=== PATIENT | female | born 1995 | race Caucasian/White ===

== ENCOUNTER 2020-08-09 05:25 | Inpatient (IN) | payer MEDICAID, SELFPAY ==
[2020-08-09] VITALS (27 sets, daily range): BP systolic 92–111; BP diastolic 45–73; PULSE 40–99; RESP 16–20; TEMP 36.5–37.1; O2SAT 96–100; BMI 27.4
[2020-08-09 06:04] LABS: Basophils # 0.1 10^3/uL (0.0-0.1); Basophils % 0.5 %; Eosinophils # 0.2 10^3/uL (0.0-0.8); Eosinophils % 1.4 %; Lymphocytes # 2.5 10^3/uL (0.8-4.8); Lymphocytes % 19.3 %; Mean Corpuscular HGB Conc 31.3 g/dL (30.0-36.0); Mean Corpuscular Hemoglobin 26.8 pg (28.0-34.0); Mean Corpuscular Volume 85.8 fL (81-99); Mean Platelet Volume 8.9 fL (7.4-10.4); Monocytes % 7.7 %; Neutrophils # 9.16 10^3/uL (1.8-7.7); Nucleated Red Blood Cells % 0 %; Platelet Count 388 10^3/cmm (130-400); Red Blood Count 3.73 10^6/uL (4.1-5.3); Red Cell Distribution Width 13.7 % (12.1-15.1); White Blood Count 13.1 10^3/uL (4.0-10.0)
[2020-08-09] MEDS: lactated ringers 1,000 ML 999 ML IV (06:14)
[2020-08-09] MEDS: famotidine 20 mg/2 mL INJ IVP (06:45)
[2020-08-09] MEDS: metoclopramide 5 mg/mL SDV 2 mL 10 MG IVP (06:46)
[2020-08-09] MEDS: citric acid-sodium citrate 30 mL UDC PO (06:46)
--- NOTE | 2020-08-09 06:54 | ANES.PREANE2 ---
Pre-Anesthetic Assessment Pre-Anesthetic Assessment: Height/Weight: Height 1.6 m Weight 70.307 kg Temp Pulse Resp BP 98.8 F 99 16 110/67 08/09/20 05:56 08/09/20 05:57 08/09/20 05:51 08/09/20 05:57 Preop Diagnosis: previous c section Proposed Procedure: Operation Date: 08/09/20 07:00 Proposed Procedures p Section Repeat With Tubal(Not Applicable) - Lexus Acosta MD Familial anesthetic complications: none Was Beta Charmaine taken within 24 hours: N/A Last intake: Intake Last Liquid Date 08/08/20 Last Liquid Time 21:00 Last Solid Date 08/08/20 Last Solid Time 21:00 Social: Social History: No alcohol and No tobacco Exam: Pre-Anes Outpt Exam: alert, oriented x 3, clear to auscultation bilaterally and regular rate & rhythm Airway: Submandibular: WNL Cervical ROM: WNL MP: 2 Dentition: Full Additional comments: chipped tooth on back left side Pulmonary: Pulmonary: None reported CV/HEM: CV/HEM: None reported : : None reported Hepatic: Hepatic: None reported GI: GI: None reported Metabolic: Metabolic: None reported Musc/skel: Musc/skel: None reported Neuropsych: Neuropsych: Seizure ( about a year since last seizure) Anesthetic Plan: ASA status: 2 Anesthesia: Regional (specify below) Risk of > 500 ml blood loss (7ml/kg in children): Yes, adequate IV access and fluids planned Meds/Allergies Current Medications: Current Medications Generic Name Dose Route Start Last Admin Trade Name Freq PRN Reason Stop Dose Admin Lactated Ringer's 1,000 mls @ 999 m ls/hr 08/09/20 05:55 08/09/20 06:14 Lactated Ringers IV 08/09/20 06:55 999 mls/hr .Q1H1M ONE Administration PFSH Anesthesia Female Reproductive History: : 2 Data Anesthesia CBC & Chem 7: 08/09/20 05:50 Other Labs: Laboratory Results - last 48 hr 08/09/20 05:50 WBC 13.1 H RBC 3.73 L Hgb 10.0 L Hct 32.0 L MCV 85.8 MCH 26.8 L MCHC 31.3 RDW 13.7 Plt Count 388 MPV 8.9 Neut % (Auto) 70.0 Lymph % (Auto) 19.3 [place] % (Auto) 7.7 Eos % (Auto) 1.4 Baso % (Auto) 0.5 Neut # (Auto) 9.16 H Lymph # (Auto) 2.5 [place] # (Auto) 1.0 H Eos # (Auto) 0.2 Baso # (Auto) 0.1 Nucleated RBC % (auto) 0 Nucleated RBCs # 0.0 Cardiac Studies: No Data to Display
--- NOTE | 2020-08-09 07:17 | P.HP_ITS ---
Providers/Chief Complaint Admitting Physician: Lexus Acosta MD Chief Complaint: repeat c section with tubal History of Present Illness HUMBERTO HENDERSON is a 25 year old female G2, P1 at 39 weeks gestation here for repeat section with bilateral tubal ligation. The patient presented very late for care around 33 weeks gestation. Review of Systems Const: Denies: fever(s) or chills Eyes: Denies: change in vision ENMT: Denies: throat pain Card: Denies: chest pain or irregular heart rhythm Resp: Denies: dyspnea, productive cough or non-productive cough GI: Denies: abdominal pain or vomiting : Denies: flank pain or difficulty voiding Musc: Denies: extremity swelling Skin/Breast: Denies: rash Neuro: Denies: headache(s) or numbness in extremities Psych: Denies: change in appetite [place]/Lymph: Denies: easy bruising or easy bleeding Medications/Allergies Allergies Allergy/AdvReac Type Severity Reaction Status Date / Time No Known Allergies Allergy Verified 08/09/20 06:10 [facility] Acute Female Reproductive History: : 2 Vitals/I&O/Wt Last Vital Signs Temp 98.8 F 08/09/20 05:56 Pulse 99 08/09/20 05:57 Resp 16 08/09/20 05:51 BP 110/67 08/09/20 05:57 Weight last 48 hrs Weight 155 lb Physical Exam Const: COMMON NORMALS: no acute distress GENERAL APPEARANCE: cooperative and comfortable HENMT: COMMON NORMALS: normocephalic and atraumatic FACE & SINUS: normal facial exam Eye: COMMON NORMALS: Equal, round and reactive pupils present and EOMs intact bilaterally Chest: COMMONS NORMALS: normal inspection of the chest Resp: COMMON NORMALS: normal respiratory effort, No retractions, No use of accessory muscles and clear to auscultation bilaterally Cardio: COMMON NORMALS: regular rate and regular rhythm GI: COMMON NORMALS: non-tender (Gravid) Extremity: GENERAL: Yes normal exam except as noted and No calf tenderness Psych: COMMON NORMALS: mental status grossly normal, cooperative and normal affect Data : 08/09/20 05:50 A&P Assessment and plan (1) with 39 completed weeks gestation: Status: Acute (2) History of section complicating : Plan for repeat section with bilateral tubal ligation Status: Acute (3) Sterilization consult: Patient desires permanent surgical sterilization Status: Acute Attestations Medical Necessity Statement*: Routine surgery and care Coding Level of Care Code Acute Strategic Debriefing Officer for Chg Fwd Diagnoses with 39 completed weeks gestation Z3A.39 History of section complicating O34.219 Sterilization consult Z30.09
[2020-08-09] MEDS: lactated ringers 1,000 ML 125 ML IV (07:22)
--- NOTE | 2020-08-09 08:53 | P.PCN_ITS ---
PACU note PACU note: VSS, Good respiratory effort, report to TUFT MACHINE OPERATOR Post-Anesthesia Exam: awake
--- NOTE | 2020-08-09 08:53 | PM.PACU ---
PACU note PACU note: VSS, Good respiratory effort, report to TESTING AND REGULATING CHIEF Post-Anesthesia Exam: awake
--- NOTE | 2020-08-09 08:56 | PM.OP ---
Operative Report Date of procedure: August 09, 2020 Pre-op Diagnosis: previous c section Pre-op Diagnosis: Undesired fertility Post-op diagnosis: same Procedure Done: 1. Repeat low transverse section Via Pfannenstiel skin incision 2. Bilateral tubal ligation Specimens removed/disposition: Vertex female infant weight 6 pounds 15 ounces, 3140 g, Apgars 7 and 9 Surgeon: Lexus Acosta MD Anesthesia: Other (Spinal) Estimated blood loss (mL): 400 IV fluids (mL): 1,100 Urine output (mL): 150 Complications: None Condition: stable Disposition: floor Procedure: After informed consent the patient was taken to the OR where spinal anesthesia was administered. She was prepped and draped in normal sterile fashion in dorsal supine position with a left lateral tilt. After adequate spinal anesthesia was verified her keloid scar from her prior section was excised. The incision was then carried through to the underlying underlying fascia sharply. The fascial incision was then extended laterally using the Mayos. The peritoneum was entered sharply and the incision site was manually stretched. The bladder blade was inserted and the vesicouterine peritoneum was identified and entered sharply using the Metzenbaums. The bladder flap was then created digitally. The bladder blade was reinserted The uterine incision was made in a transverse fashion in the lower uterine segment. Amniotic rupture of membranes was performed with an Allis clamp. The 's head and body were then delivered atraumatically with bulb suction of the mouth and nares at delivery. There was a nuchal x2. The cord was clamped and cut and the infant was handed to the waiting pediatric nurse. Cord blood was obtained. The placenta was delivered using fundal pressure. The uterus was then exteriorized from the abdomen and a dry sponge was used to clear the uterus of clots and debris. The uterine incision was repaired using 0 chromic in a running locked fashion. A second layer of the same suture was used in an imbricating manner. Excellent hemostasis was obtained. The left fallopian tube was then grasped with a [place] and a midportion of the tube was ligated and excised. Specimen was sent to pathology. Tubal ostia were identified. Cut portions of the tube were coagulated using the Bovie. There was excellent hemostasis. The right fallopian tube was then grasped with a [place] and a midportion of the tube was ligated and excised. Estimate was sent to pathology. Tubal ostia were identified. Cut portions of the tube were ligated using the Bovie. Excellent hemostasis was obtained. The uterus was then returned to the abdomen. Irrigation was used to clear the gutters of clots and debris and the uterine incision was reinspected for hemostasis. The peritoneum was then reapproximated using 4-0 Vicryl in a running fashion. The subfascial tissue was inspected for hemostasis and any small bleeders were coagulated using the Bovie. The fascia was then reapproximated using 0 Vicryl in a running fashion. The subcutaneous tissue was then irrigated and any small bleeders were coagulated using the Bovie. The subcutaneous tissue was then reapproximated using 4-0 Vicryl in a running fashion. The skin was then reapproximated with leydi. A pressure bandage was applied and patient went to recovery in good condition. Sponge instrument and needle counts were correct
[2020-08-09] MEDS: dextrose 5%-lactated ringers 1,000 ML 125 ML IV (12:33)
--- NOTE | 2020-08-09 15:22 | PC.NURSE ---
PT UP TO CHAIR, DID GREAT. NO ASSISTANCE NEEDED.
[2020-08-09] MEDS: docusate sodium 100 mg Capsule PO (21:18)
[2020-08-09] MEDS: ibuprofen 800 mg tablet PO (21:18)
--- NOTE | 2020-08-09 21:30 | ANE.PACU2 ---
Inpatient post-anesthesia follow up: Airway intact: Yes Vital signs: Temperature 98.2 F Pulse Rate 75 Respiratory Rate 18 Blood Pressure 104/61 Pulse Oximetry 98 Oxygen Delivery Me thod Room Air Oxygen Flow Rate Fraction of Inspir ed Oxygen Hydration adequate: Yes Nausea and vomiting: No Pain level: 1 Mental status: Baseline
[2020-08-09 21:37] LABS: Hematocrit 32.1 % (37.0-47.0); Hemoglobin 10.1 g/dL (11.5-15.3); Mean Corpuscular HGB Conc 31.5 g/dL (30.0-36.0); Mean Corpuscular Hemoglobin 27.3 pg (28.0-34.0); Mean Corpuscular Volume 86.8 fL (81-99); Platelet Count 378 10^3/cmm (130-400); Red Cell Distribution Width 13.8 % (12.1-15.1); White Blood Count 14.9 10^3/uL (4.0-10.0)
[2020-08-10] MEDS: acetaminophen 325 mg Tablet 650 MG PO (04:33)
[2020-08-10 04:36] VITALS: BP 105/66; PULSE 68; RESP 17; TEMP 36.4; O2SAT 100
[2020-08-10] MEDS: prenatal vitamin Capsule 1 CAP PO (09:52)
[2020-08-10] MEDS: ibuprofen 800 mg tablet PO ×2 (09:52→16:31)
[2020-08-10] MEDS: ferrous sulfate EC 325 mg Tablet PO (09:52)
[2020-08-10] MEDS: docusate sodium 100 mg Capsule PO (09:52)
[2020-08-10 10:01] VITALS: BP 125/78; PULSE 72; RESP 16; TEMP 36.8; O2SAT 98
[2020-08-10 16:30] VITALS: BP 118/73; PULSE 87; RESP 15; TEMP 36.8
--- NOTE | 2020-08-10 17:12 | PM.DCS ---
Discharge Providers Date of Admission: 08/09/20 05:25 Date of Discharge: August 10, 2020 Attending Provider at Admission: Lexus Acosta MD Attending Provider at Discharge: Lexus Acosta MD Diagnoses at Discharge Discharge Diagnosis (1) Sterilization consult: Status: Acute Permanent problem details: Status post bilateral tubal ligation (2) Status post repeat low transverse section: Status: Acute (3) Insufficient care, delivered, current hospitalization: Status: Acute Reason for Visit Reason for Visit: repeat c section with tubal Hospital Course Hospital Course This is a 25-year-old G2 now P2 who was admitted for a scheduled repeat section with bilateral tubal ligation. She had late onset care starting in the third trimester. There were no known complications of the . There were no complications of the repeat section or tubal ligation. The patient did remarkably well after delivery. She was ambulating, tolerating a regular diet, had excellent pain control on only ibuprofen and was requesting discharge home on postop day #1 Physical Exam HENMT: COMMON NORMALS: normocephalic HEAD & SCALP: normocephalic FACE & SINUS: normal facial exam Resp: COMMON NORMALS: normal respiratory effort and clear to auscultation bilaterally AUSCULTATION: clear to auscultation bilaterally Cardio: COMMON NORMALS: regular rate and regular rhythm RATE: regular rate RHYTHM: regular rhythm GI: COMMON NORMALS: Soft to palpation INSPECTION: Yes incision (Clean dry and intact) Inspection of incision: healing well AUSCULTATION: Yes normoactive bowel sounds PALPATION: Yes Soft to palpation and Yes Tenderness to palpation present (GI) (Minimal only to deep palpation) Extremity: COMMON NORMALS: no calf tenderness and no pedal edema Psych: COMMON NORMALS: mental status grossly normal, cooperative and normal affect Urinary Catheter Management^: [place]: Cath Placed During This Visit: yes, but has since been removed by the nurse Reason for Continuing Indwelling Catheter: Perioperative Use in Selected Surgeries Urinary Catheter Date of Insertion: 08/09/20 Urinary Catheter Time of Insertion: 07:40 Date Urinary Catheter Removed: 08/09/20 Time Urinary Catheter Discontinued: 16:15 Discharge Data Data Completed and Pending: Completed Studies During Hospitalization Category Date Time Status Pathology: Surgic al [PTH] Routine Pth 08/09/20 09:49 Completed Labs from last 24 hours 08/09/20 21:25 WBC 14.9 H RBC 3.70 L Hgb 10.1 L Hct 32.1 L MCV 86.8 MCH 27.3 L MCHC 31.5 RDW 13.8 Plt Count 378 MPV 9.0 Vitals: Last Vital Signs Temp 98.2 F 08/10/20 10:01 Pulse 72 08/10/20 10:01 Resp 16 08/10/20 10:01 BP 125/78 08/10/20 10:01 Pulse Ox 98 08/10/20 10:01 Discharge Plan Discharge Patient Disposition: Home Condition: Stable Prescriptions: New ibuprofen 800 mg Tablet 800 mg PO TID PRN (Reason: Abdominal Discomfort) Qty: 30 RF: 0 DOK 100 mg Capsule 100 mg PO BID Qty: 60 RF: 0 Discharge Orders: Discharge Order (Routine); Ordered 08/10/20 Ordered By: Lexus Acosta Referrals: Lexus Acosta MD [Physician] - 08/15/20 11:00 am (* Your incision check is with Dr. Acosta on 08/15/2020) Discharge Diet: Usual diet Discharge Activity: Limit activity as instructed Patient Instructions: Pre-eclampsia and Eclampsia (DC), Bleeding (DC), OB - Melissa/Karla, OB Discharge Report, OB Anesthesia Instructions, OB Food/Drug Interaction Guide, OB Home Care, OB Proud Parent Packet Discharge Attestations Time Spent in Discharge Care*: less than 30 min Quality Metrics Clinical Quality Measures During this hospital stay, did patient experience: None Coding Level of Care Code Acute Cow Buyer for Chg Fwd Diagnoses Sterilization consult Z30.09 Status post repeat low transverse section Z98.891 Insufficient care, delivered, current hospitalization O09.30
--- NOTE | 2020-08-10 17:45 | PC.NURSE ---
Pt did not receive care until 34weeks with Dr Acosta
[2020-08-10 19:52] VITALS: BP 116/77; PULSE 82; RESP 16; TEMP 37; O2SAT 96
== END 2020-08-10 19:35 | disposition home or self-care (01) | DRG 784 ==
PROVIDERS: Admitting Provider Family Medicine; Visit Provider Family Medicine
PROC: 10D00Z1 Extraction of Products of Conception, Low, Open Approach (ICD-10-PCS; CPT 59514; principal; 2020-08-09 07:00)
DX: O34.211 Maternal care for low transverse scar from previous cesarean delivery (principal); O99.354 Diseases of the nervous system complicating childbirth; Z3A.39 39 weeks gestation of pregnancy; Z37.0 Single live birth; G40.909 Epilepsy, unspecified, not intractable, without status epilepticus; O69.2XX0 Labor and delivery complicated by other cord entanglement, with compression, not applicable or unspecified; Z30.2 Encounter for sterilization
CPT/HCPCS: 36415; 51702; 59025; 59409; 85025; 85027; 88302; 90471; 90686; 96374; 96375; 98960; 99211; J1885; J2274; J2370; J2765; J3490

== ENCOUNTER 2022-01-22 17:03 | Emergency (ER) | payer MEDICAID, SELFPAY ==
[2022-01-22 17:41] VITALS: BP 112/70; PULSE 74; RESP 18; TEMP 36.8; O2SAT 97; BMI 23.9
[2022-01-22 17:52] VITALS: BP 112/70; PULSE 74; RESP 18; TEMP 36.8; O2SAT 97
--- NOTE | 2022-01-22 17:54 | W.ED.DENTAL ---
HPI - Dental/Oral General: Chief complaint: Dental/Oral Stated complaint: dental pain Time Seen by Provider: 01/22/22 17:48 History of Present Illness: 26-year-old female comes in today with complaints of swelling and mass to the right lower jaw. Patient reports noticing some swelling first to the inside of the mouth but since then over the last 3 weeks has noticed enlarging hard growth to the right lower jaw. Patient reports no fever and minimal pain. Patient has epilepsy. Patient has had 2 C-sections. Patient's had a tubal ligation. Patient takes no routine medications for her epilepsy. Review of Systems General: Reports: 10 or more systems reviewed and unremarkable except in HPI and below ENMT: Reports: other (Swelling right lower jaw) Card: Denies: chest pain Resp: Denies: dyspnea Musc: Denies: neck pain or back pain Skin/Breast: Denies: rash PFSH ED PFSH: Medical History (Updated 01/22/22 @ 20:24 by ASHOK Valdivia) Psychiatric care Physical Exam Const: COMMON NORMALS: alert HENMT: COMMON NORMALS: atraumatic and Normal external nose present HEAD & SCALP: atraumatic HEAD IMAGES: 1. 3 cm mass FACE & SINUS: other (Mass to the right lower jaw, 3 cm) NOSE: Normal external nose present MOUTH: Normal oral and palatal mucosa present THROAT: posterior oropharynx normal Neck/C-Spine: COMMON NORMALS: full ROM Resp: COMMON NORMALS: normal respiratory effort and clear to auscultation bilaterally AUSCULTATION: clear to auscultation bilaterally Cardio: COMMON NORMALS: regular rate and regular rhythm RATE: regular rate RHYTHM: regular rhythm Extremity: COMMON NORMALS: normal to inspection and full ROM Neuro: SENSORIUM/ORIENTATION: Yes alert Skin: COMMON NORMALS: no rashes or lesions noted GENERAL SKIN EXAM: no rashes or lesions noted Course Vital Signs: Vital signs: Vital Signs Temperature 98.2 F 01/22/22 17:52 Pulse Rate 74 01/22/22 17:52 Respiratory Rate 18 01/22/22 17:52 Blood Pressure 112/70 01/22/22 17:52 Pulse Oximetry 97 01/22/22 17:52 Oxygen Delivery Me thod 01/22/22 17:52 MDM - Dental/Oral Medical Decision Making 26-year-old female comes in today with complaints of mass to the right lower jaw. Patient felt that she had a dental infection but over the last 3 weeks she has noticed more swelling and significant hardness to the mass. Patient reports no fever, no difficulty swallowing, on exam there is a palpable 3 cm mass to the right lower jaw that is not mobile and smooth. Vital signs are normal. Differential diagnosis includes bone cyst, carcinoma, periapical abscess. Laboratory values were unremarkable. Patient manages secretions well. CT of the neck noted a periapical abscess without any sign of bony involvement. We will start patient on Augmentin 1 tablet twice a day for 10 days. Recommended patient follow-up with dentist for definitive care. Patient reported understanding agreed to plan. Lab Data : 01/22/22 18:26 01/22/22 18:[address] 01/22/22 17:59 IMPRESSION: 1. Dental and periodontal disease with evidence of right periapical abscess and inflammation or abscess in the right submandibular space 2. Possible right facial cellulitis. Laboratory Results WBC 10.8 10^3/uL (4.0-10.0) H 01/22/22 18: RBC 3.82 10^6/uL (4.1-5.3) L 01/22/22 18: Hgb 12.0 g/dL (11.5-15.3) 01/22/22 18: Hct 37.0 % (37.0-47.0) 01/22/22 18: MCV 96.9 fl (81-99) 01/22/22 18: MCH 31.4 pg (28.0-34.0) 01/22/22 18: MCHC 32.4 g/dL (30.0-36.0) 01/22/22 18: RDW 14.0 % (12.1-15.1) 01/22/22 18: Plt Count 384 10^3/cmm (130-400) 01/22/22 18: MPV 8.7 fL (7.4-10.4) 01/22/22 18: Neut % (Auto) 74.1 % 01/22/22 18: Lymph % (Auto) 16.3 % 01/22/22 18: [place] % (Auto) 5.8 % 01/22/22 18: Eos % (Auto) 2.8 % 01/22/22 18: Baso % (Auto) 0.7 % 01/22/22 18: Neut # (Auto) 8.02 10^3/uL (1.8-7.7) H 01/22/22 18: Lymph # (Auto) 1.8 10^3/uL (0.8-4.8) 01/22/22 18: [place] # (Auto) 0.6 10^3/uL (0.2-0.9) 01/22/22 18: Eos # (Auto) 0.3 10^3/uL (0.0-0.8) 01/22/22 18: Baso # (Auto) 0.1 10^3/uL (0.0-0.1) 01/22/22 18: Nucleated RBC % (auto) 0 % 01/22/22 18: Nucleated RBCs # 0.0 /100WBC 01/22/22 18: Sodium 140 mmol/L (136-145) 01/22/22 18: Potassium 4.1 mmol/L (3.5-5.1) 01/22/22 18: Chloride 102 mmol/L (98-107) 01/22/22 18: Carbon Dioxide 28 mmol/L (22-29) 01/22/22 18: Anion Gap 14.1 (5-19) 01/22/22 18: BUN 5 mg/dL (6-20) L 01/22/22 18: Creatinine 0.6 mg/dL (0.5-0.9) 01/22/22 18: GFR Calculation 121.8 mL/min (90-130) 01/22/22 18: Glucose 105 mg/dL (65-115) 01/22/22 18: Calculated Osmolality 288 mOsm/kg (285-295) 01/22/22: Calcium 8.8 mg/dL (8.5-10.5) 01/22/22 18: Total Bilirubin 0.2 mg/dL (0.15-1.2) 01/22/22 18: AST 15 U/L (0-32) 01/22/22 18: ALT 9 U/L (0-33) 01/22/22 18: Alkaline Phosphatase 79 U/L (35-105) 01/22/22 18:26 Total Protein 7.0 g/dL (6.6-8.7) 01/22/22 18:26 Albumin 4.3 g/dL (3.5-5.2) 01/22/22 18:26 Globulin 2.7 g/dL (1.3-4.6) 01/22/22 18:26 HCG, Qual Negative (Negative) 01/22/22 18:26 Discharge Plan Discharge Patient Disposition: Home Clinical Impression: Dental abscess Condition: Stable Prescriptions: New amoxicillin-pot clavulanate 875-125 mg tablet 1 tab PO BID Qty: 20 0RF No Action ibuprofen 800 mg Tablet 800 mg PO TID PRN (Reason: Abdominal Discomfort) Qty: 30 0RF DOK 100 mg Capsule 100 mg PO BID Qty: 60 0RF Discharge Orders: Discharge ED (Routine); Ordered 01/22/22 Ordered By: Gio Gardiner Discharge Diet: Usual diet Discharge Activity: Increase activity as tolerated Patient Instructions: Dental Abscess (ED) Activity Restrictions/Additional Instructions: Take antibiotics as directed. Follow-up with dentist for definitive care. Use acetaminophen or ibuprofen for pain. Return to ER for worsening symptoms such as difficulty swallowing, fever greater than 100.4, inability to hold fluids down or take medication. Coding Level of Care Code ED Real Estate Lawyer for Cierra Fwd Exam Detailed
--- NOTE | 2022-01-22 17:59 | CTR_ITS ---
PROCEDURE INFORMATION: Exam: CT Neck With Contrast Exam date and time: 01/22/2022 7:24 PM Age: 26 years old Clinical indication: Other: Swelling and knot RT side of neck worsening x 3 weeks; Additional info: Mass right lower jaw/mandible, PT has had tubal ligation. TECHNIQUE: Imaging protocol: Computed tomography of the neck with contrast. Radiation optimization: All CT scans at this facility use at least one of these dose optimization techniques: automated exposure control; mA and/or kV adjustment per patient size (includes targeted exams where dose is matched to clinical indication); or iterative reconstruction. Contrast material: OMNIPAQUE 350; Contrast volume: 80 ml; Contrast route: INTRAVENOUS (IV); COMPARISON: No relevant prior studies available. RADIATION DOSE METRICS: Total DLP (mGy-cm): 223.43 FINDINGS: Dental: There are dental caries involving the buccal surfaces of multiple upper and lower molar teeth. Large cavities have destroyed much of the crowns of the bilateral posterior upper molars and the posterior right lower molar. There is lucency surrounding the root zones of the posterior right upper molar worrisome for periapical abscess of uncertain age. There is lucency surrounding the root zones of the posterior right lower molar concerning for periapical abscess. There is small defect in the cortex of the medial aspect of the mandible at that level. Pharynx: Unremarkable. No significant tonsillar enlargement. Larynx: Unremarkable. Epiglottis is normal. Prevertebral and retropharyngeal spaces: Unremarkable. Salivary glands: Parotid and submandibular glands are unremarkable. Thyroid: Normal. No enlarged or calcified nodules. Lymph nodes: Unremarkable. No lymphadenopathy. Trachea: Visualized trachea is unremarkable. Lungs: Unremarkable as visualized. Bones/joints: There is inflammatory stranding in the right submandibular space mostly along the inferior border of the right mandible with possible small rim enhancing fluid collection which may represent abscess along the inferolateral border of the mandible but no large drainable collection. There is also some soft tissue swelling in the right submandibular space along the medial aspect of the mandible. The source for this infection is likely the periapical abscess in the lower jaw on the right. Soft tissues: There is thickening of the right platysma muscle. There is some stranding in the overlying subcutaneous soft tissues on the right side of the face with mild skin thickening which may represent some focal cellulitis. Please correlate with clinical findings. CT/CT neck w con* [id number] IMPRESSION: 1. Dental and periodontal disease with evidence of right periapical abscess and inflammation or abscess in the right submandibular space 2. Possible right facial cellulitis.
[2022-01-22 18:52] LABS: Basophils # 0.1 10^3/uL (0.0-0.1); Basophils % 0.7 %; Eosinophils # 0.3 10^3/uL (0.0-0.8); Eosinophils % 2.8 %; Lymphocytes # 1.8 10^3/uL (0.8-4.8); Lymphocytes % 16.3 %; Mean Corpuscular HGB Conc 32.4 g/dL (30.0-36.0); Mean Corpuscular Hemoglobin 31.4 pg (28.0-34.0); Mean Corpuscular Volume 96.9 fl (81-99); Mean Platelet Volume 8.7 fL (7.4-10.4); Monocytes # 0.6 10^3/uL (0.2-0.9); Monocytes % 5.8 %; Neutrophils # 8.02 10^3/uL (1.8-7.7); Neutrophils % 74.1 %; Nucleated Red Blood Cells % 0 %; Platelet Count 384 10^3/cmm (130-400); Red Blood Count 3.82 10^6/uL (4.1-5.3); White Blood Count 10.8 10^3/uL (4.0-10.0)
[2022-01-22 18:57] LABS: HCG, Serum Qual Negative (Negative)
[2022-01-22 19:03] LABS: Alanine Aminotransferase 9 U/L (0-33); Albumin Level 4.3 g/dL (3.5-5.2); Alkaline Phosphatase 79 U/L (35-105); Anion Gap 14.1 (5-19); Aspartate Amino Transferase 15 U/L (0-32); Blood Urea Nitrogen 5 mg/dL (6-20); Calcium 8.8 mg/dL (8.5-10.5); Carbon Dioxide 28 mmol/L (22-29); Chloride 102 mmol/L (98-107); Globulin 2.7 g/dL (1.3-4.6); Glomerular Filtration Rate 121.8 mL/min (90-130); Glucose 105 mg/dL (65-115); Osmolality Calculated 288 mOsm/kg (285-295); Potassium 4.1 mmol/L (3.5-5.1); Sodium 140 mmol/L (136-145); Total Bilirubin 0.2 mg/dL (0.15-1.2)
[2022-01-22] MEDS: iohexol 350 mg/mL 100 mL Btl IV (19:33)
== END 2022-01-22 20:45 | disposition home or self-care (01) ==
PROVIDERS: Emergency Provider Nurse Practitioner Family
DX: K04.7 Periapical abscess without sinus (principal)
CPT/HCPCS: 70491; 80053; 84703; 85025; 99285; Q9967

== ENCOUNTER 2023-05-24 08:58 | Emergency (ER) | payer OTHER, MEDICAID, SELFPAY ==
[2023-05-24 09:02] VITALS: BP 128/85; PULSE 99; RESP 17; TEMP 36.6; O2SAT 100; BMI 23.9
[2023-05-24 09:08] VITALS: PULSE 78; O2SAT 100
--- NOTE | 2023-05-24 09:08 | ECG_ITS ---
[facility] Test Date: 2023-05-24 Pat Name: Shivani Lopez Department: Room: Gender: Female Channel Marketing Specialist: : 1995 Requested By: Maria E Victor Order Number: [id number] Cory MD: Asa Ovalle M.D. Measurements Intervals [place] Rate: 68 P: 72 HI: 160 QRS: 80 QRSD: 82 T: 61 QT: 389 QTc: 415 Interpretive Statements SINUS RHYTHM No previous ECG available for comparison Electronically Signed On 05-24-2023 13:44:22 VP [employer] by Asa Ovalle M.D. [email or web address]
--- NOTE | 2023-05-24 09:09 | ED_ITS ---
HPI - Seizure 2 General: Chief Complaint: Seizure Stated Complaint: seizure activity Time Seen by Provider: 05/24/23 09:00 Source: patient Mode of arrival: wheelchair Limitations: no limitations History of Present Illness: HPI Narrative: Patient is a 28-year-old female who presents to ED today along with a coworker for complaints that she can feel a seizure coming on . Patient tells me in 2020 she experienced her first seizure-like activity. She states she was placed on Keppra by a nurse practitioner in [place], [place]. Patient since then has been taking 1g Keppra 3 times daily. At some point in [place], [place] she had an EEG that was reportedly normal. She states a few weeks ago she took herself off of this medication because it was making me angry . She states it did not seem to control her seizures anyway. She reports approximately once every few weeks she would have seizures stating she would have approximately 4 in a day. States she has had a total of 5 seizures in the last 3 weeks. Frequency was about the same while she was on Keppra. She has never seen a neurologist. She reportedly was scheduled appointments with Dr. Haq but states the clinic kept canceling her appointments. Patient states this morning she noticed her pulse was elevated in the 110s and her blood pressure was high. She also felt shaky and felt like her head, teeth, and fingers were going numb. Patient states she has felt like that previously when she has had seizures. MD complaint: feels seizure coming on Onset (ago): hour(s) Trauma: No Seizure History: Yes Place: Work Possible Precipitating Event: none Associated symptoms: Deny chest pain, chills, confusion, fever(s), malaise or syncope Treatments prior to arrival: none Review of Systems 2 Const: Denies: fever(s), chills, body aches, fatigue or malaise Eyes: Denies: change in vision, blurry vision, photophobia, floaters or seeing flashes Card: Reports: other (reports elevated HR while at work earlier); Denies: chest pain, palpitations, irregular heart rhythm, edema, swelling of feet/ankles, lightheadedness, syncope, pre-syncope, dyspnea on exertion, orthopnea, leg pain with exertion or acrocyanosis Resp: Denies: dyspnea, productive cough, non-productive cough, wheezing, pain on inspiration, change in phlegm color, hemoptysis or chest congestion GI: Denies: abdominal pain, nausea, vomiting, heartburn or diarrhea : Denies: dysuria Musc: Denies: neck pain, back pain, extremity pain, extremity swelling or joint pain Skin/Breast: Denies: rash Neuro: Reports: sensory changes (reports fingers, head, and teeth are going numb); Denies: headache(s), numbness in extremities, weakness in extremities, lack of coordination, difficulty walking, frequent falls, dizziness, vertigo, confusion, behavioral changes, Slurred speech present or difficulty communicating thoughts Physical Exam 2 Const: COMMON NORMALS: no acute distress, average body habitus, patient oriented x3, no limitations, healthy appearing, alert and well nourished G ENERAL APPEARANCE: cooperative and anxious ORIENTATION/CONSCIOUSNESS: Yes awake, Yes oriented to person, Yes oriented to place and Yes oriented to time HENMT: COMMON NORMALS: normocephalic and atraumatic HEAD & SCALP: normal to inspection, normocephalic and atraumatic FACE & SINUS: normal facial exam MOUTH: Normal oral and palatal mucosa present, lip normal and tongue normal Eye: GENERAL EYE: appearance normal, both eyes and all related structures and normal light reflex DIRECT OPHTHALMOSCOPY: Yes normal light reflex Neck/C-Spine: COMMON NORMALS: full ROM, no lymphadenopathy, supple and no meningeal signs Chest: COMMONS NORMALS: normal inspection of the chest Resp: COMMON NORMALS: normal respiratory effort and clear to auscultation bilaterally AUSCULTATION: clear to auscultation bilaterally Cardio: COMMON NORMALS: regular rate and regular rhythm RATE: regular rate RHYTHM: regular rhythm Extremity: COMMON NORMALS: normal to inspection GENERAL: Yes normal exam except as noted Neuro: NIKA COMA SCALE: document GCS findings Nika coma scale eye opening: Spontaneous Nika coma scale verbal response: Orientated Nika coma scale motor response: Obey commands Rosebud coma scale total score: 15 COMMON NORMALS: patient oriented x3, CN's II-XII intact bilaterally, moves all extremities, no focal motor deficits, no sensory deficits noted and gait normal SENSORIUM/ORIENTATION: Yes alert, Yes oriented to person, Yes oriented to place and Yes oriented to time MENINGEAL SIGNS: Yes no meningeal signs Skin: COMMON NORMALS: no rashes or lesions noted GENERAL SKIN EXAM: no rashes or lesions noted Course 2 Vital Signs: Vital signs: Vital Signs Temperature 97.8 F 05/24/23 09:02 Pulse Rate 81 05/24/23 10:08 Respiratory Rate 17 05/24/23 09:02 Blood Pressure 128/85 05/24/23 09:02 Pulse Oximetry 100 05/24/23 10:08 Oxygen Delivery Me thod Room Air 05/24/23 09:02 MDM - Seizure MDM Narrative Medical decision making narrative: Patient arrives in no acute distress. Her vital signs are stable here. She was given 1 mg of Ativan and does reportedly feel much better. Labs overall are unremarkable. I suspect that seizures are nonepileptic in nature although I would like her to see neurology to determine further. I think until we can confirm that these are nonepileptic and especially given the fact that she is reporting 5 seizures over the past 3 weeks, I will place her on a different antiepileptic medication until she can be seen by primary care and/or neurology. Return to ED precautions given. Medical Records Attestation: I reviewed the patient's medical records. Lab Data Attestation: I reviewed the patient's lab results. 05/24/23 09:17 05/24/23 09:17 Labs: Laboratory Results WBC 8.98 10^3/uL (3.29-11.43) 05/24/23 09:17 RBC 4.80 10^6/uL (3.85-5.65) 05/24/23 09:17 Hgb 14.80 g/dL (11.27-16.99) 05/24/23 09:17 Hct 44.5 % (36-47) 05/24/23 09:17 MCV 92.7 fl (85-98) 05/24/23 09:17 MCH 30.8 pg (27-33) 05/24/23 09:17 MCHC 33.3 g/dL (30-55) 05/24/23 09:17 RDW 13.5 % (12.1-15.1) 05/24/23 09:17 Plt Count 391 10^3/cmm (157-399) 05/24/23 09:17 MPV 8.2 fL (7.4-10.4) 05/24/23 09:17 Neut % (Auto) 68.6 % 05/24/23 09:17 Lymph % (Auto) 21.0 % 05/24/23 09:17 Trinity % (Auto) 6.3 % 05/24/23 09:17 Eos % (Auto) 3.0 % 05/24/23 09:17 Baso % (Auto) 0.8 % 05/24/23 09:17 Neut # (Auto) 6.15 10^3/uL (1.8-7.7) 05/24/23 09:17 Lymph # (Auto) 1.9 10^3/uL (0.8-4.8) 05/24/23 09:17 Trinity # (Auto) 0.6 10^3/uL (0.2-0.9) 05/24/23 09:17 Eos # (Auto) 0.3 10^3/uL (0.0-0.8) 05/24/23 09:17 Baso # (Auto) 0.1 10^3/uL (0.0-0.1) 05/24/23 09:17 Nucleated RBC % (auto) 0 % 05/24/23 09:17 Nucleated RBCs # 0.0 /100WBC 05/24/23 09:17 Sodium 137 mmol/L (136-145) 05/24/23 09:17 Potassium 3.9 mmol/L (3.5-5.1) 05/24/23 09:17 Chloride 101 mmol/L (98-107) 05/24/23 09:17 Carbon Dioxide 24 mmol/L (22-29) 05/24/23 09:17 Anion Gap 15.9 (5-19) 05/24/23 09:17 BUN 8 mg/dL (6-20) 05/24/23 09:17 Creatinine 0.7 mg/dL (0.5-0.9) 05/24/23 09:17 GFR Calculation 100.4 mL/min (90-130) 05/24/23 09:17 Glucose 102 mg/dL (65-115) 05/24/23 09:17 Calculated Osmolality 283 mOsm/kg (285-295) L 05/24/23 09:17 Calcium 9.7 mg/dL (8.5-10.5) 05/24/23 09:17 Total Bilirubin 0.5 mg/dL (0.15-1.2) 05/24/23 09:17 AST 17 U/L (0-32) 05/24/23 09:17 ALT 11 U/L (0-33) 05/24/23 09:17 Alkaline Phosphatase 75 U/L (35-105) 05/24/23 09:17 Total Protein 8.0 g/dL (6.6-8.7) 05/24/23 09:17 Albumin 5.1 g/dL (3.5-5.2) 05/24/23 09:17 Globulin 2.9 g/dL (1.3-4.6) 05/24/23 09:17 TSH 1.77 uIU/mL (0.27-4.20) 05/24/23 09:17 HCG, Qual Negative (Negative) 05/24/23 09:17 Urine Color Yellow (Yellow) 05/24/23 10:30 Urine Appearance Clear (CLEAR) 05/24/23 10:30 Urine pH 8 (5-7) H 05/24/23 10:30 Ur Specific Mcintosh 1.010 (1.005-1.030) 05/24/23 10:30 Urine Protein Neg (Negative) 05/24/23 10:30 Urine Glucose (UA) Norm (Normal) 05/24/23 10:30 Urine Ketones Negative (Negative) 05/24/23 10:30 Urine Blood Neg (Negative) 05/24/23 10:30 Urine Nitrate Negative (Negative) 05/24/23 10:30 Urine Bilirubin Neg (Negative) 05/24/23 10:30 Prot Sulfosalicylic Acd Negative (Negative) 05/24/23 10:30 Urine Urobilinogen 1 mg/dL (Negative) H 05/24/23 10:30 Ur Leukocyte Esterase Negative (Negative) 05/24/23 10:30 Urine Opiates Screen Negative ng/mL (Negative) 05/24/23 10:30 Ur Barbiturates Screen Negative ng/mL (Negative) 05/24/23 10:30 Ur Phencyclidine Scrn Negative ng/mL (Negative) 05/24/23 10:30 Ur Amphetamines Screen Negative ng/mL (Negative) 05/24/23 10:30 U Benzodiazepines Scrn Positive ng/mL (Negative) H 05/24/23 10:30 Urine Cocaine Screen Negative ng/mL (Negative) 05/24/23 10:30 U Marijuana (THC) Screen Positive ng/mL (Negative) H 05/24/23 10:30 Ethyl Alcohol < 10 mg/dL (0-10) 05/24/23 09:17 No radiology studies performed this visit Discharge Plan Discharge Patient Disposition: Home Clinical Impression: Seizure-like activity Condition: Stable Prescriptions: New Depakote 250 mg tablet,delayed release (DR/EC) 250 mg PO BID Qty: 60 0RF Discharge Orders: Discharge ED (Routine); Ordered 05/24/23 Ordered By: Maria E Victor Patient Instructions: Epilepsy (DC), Seizures Activity Restrictions/Additional Instructions: As we discussed I will place a case management referral to get you set up with a primary care provider as well as a referral to neurology for further evaluation of your seizure-like activity. We will attempt to try you on a different antiepileptic medication to see if this decreases the frequency of your seizure- like activity. Coding Level of Care Code ED Professor Of Communication for Cierra Monge
--- NOTE | 2023-05-24 09:22 | PC.PHAR ---
pt states she takes no prescription or otc medications-no meds pull up on ext med history
[2023-05-24 09:30] LABS: Basophils # 0.1 10^3/uL (0.0-0.1); Basophils % 0.8 %; Eosinophils # 0.3 10^3/uL (0.0-0.8); Hematocrit 44.5 % (36-47); Lymphocytes # 1.9 10^3/uL (0.8-4.8); Mean Corpuscular HGB Conc 33.3 g/dL (30-55); Mean Corpuscular Hemoglobin 30.8 pg (27-33); Mean Corpuscular Volume 92.7 fl (85-98); Mean Platelet Volume 8.2 fL (7.4-10.4); Monocytes # 0.6 10^3/uL (0.2-0.9); Monocytes % 6.3 %; Neutrophils # 6.15 10^3/uL (1.8-7.7); Neutrophils % 68.6 %; Nucleated Red Blood Cells % 0 %; Platelet Count 391 10^3/cmm (157-399); Red Cell Distribution Width 13.5 % (12.1-15.1); White Blood Count 8.98 10^3/uL (3.29-11.43)
--- NOTE | 2023-05-24 09:37 | DCPLANNER ---
Message was sen to Dr. Guerrero office on 05/24/23 at 0938. Clinic to contact patient.
[2023-05-24 09:38] VITALS: PULSE 77; O2SAT 100
[2023-05-24 09:52] LABS: HCG, Serum Qual Negative (Negative)
[2023-05-24 09:56] LABS: Alanine Aminotransferase 11 U/L (0-33); Albumin Level 5.1 g/dL (3.5-5.2); Alkaline Phosphatase 75 U/L (35-105); Anion Gap 15.9 (5-19); Aspartate Amino Transferase 17 U/L (0-32); Blood Urea Nitrogen 8 mg/dL (6-20); Calcium 9.7 mg/dL (8.5-10.5); Carbon Dioxide 24 mmol/L (22-29); Chloride 101 mmol/L (98-107); Creatinine Clr Calc Pharmacy 106.5964; Globulin 2.9 g/dL (1.3-4.6); Glomerular Filtration Rate 100.4 mL/min (90-130); Glucose 102 mg/dL (65-115); Osmolality Calculated 283 mOsm/kg (285-295); Potassium 3.9 mmol/L (3.5-5.1); Sodium 137 mmol/L (136-145); Thyroid Stimulating Hormone 1.77 uIU/mL (0.27-4.20); Total Bilirubin 0.5 mg/dL (0.15-1.2)
[2023-05-24 10:05] LABS: Alcohol Level < 10 mg/dL (0-10)
[2023-05-24 10:08] VITALS: PULSE 81; O2SAT 100
[2023-05-24 10:43] LABS: Add Urine Microscopic? NO; Charge for UA Resulting for Rev
[2023-05-24 11:15] LABS: Amphetamines Screen Urine Negative (Negative); Barbiturates Screen Urine Negative (Negative); Benzodiazepines Screen Urine Positive (Negative); Cocaine Screen Urine Negative (Negative); Opiate Screen Urine Negative (Negative); PCP Screen Urine Negative (Negative); THC Screen Urine Positive (Negative)
[2023-05-24 11:16] LABS: Bilirubin Urine Neg (Negative); Blood Urine Neg (Negative); Glucose Urine UA Norm (Normal); Ketones Urine Negative (Negative); Leukocyte Esterase Urine Negative (Negative); Nitrate Urine Negative (Negative); Protein Urine Neg (Negative); Sulfosalicylic Acid Urine Negative (Negative); Urine Appearance Clear (CLEAR); Urine Color Yellow (Yellow); Urobilinogen Urine 1 mg/dL (Negative); pH Urine 8 (5-7)
[2023-05-24 12:10] VITALS: PULSE 82; RESP 16; O2SAT 100
== END 2023-05-24 12:13 | disposition home or self-care (01) ==
PROVIDERS: Emergency Provider Physician Assistant
DX: R56.9 Unspecified convulsions (principal)
CPT/HCPCS: 36415; 80053; 80306; 80307; 81003; 84443; 84703; 85025; 93005; 96374; 99284; J2060

== ENCOUNTER 2023-07-12 11:37 | Emergency (ER) | payer OTHER, MEDICAID, SELFPAY ==
[2023-07-12 11:42] VITALS: BP 121/79; PULSE 76; RESP 18; TEMP 36.9; O2SAT 99; BMI 23.1
--- NOTE | 2023-07-12 11:42 | ED_ITS ---
HPI - Seizure 2 General: Chief Complaint: Seizure Stated Complaint: seizure Time Seen by Provider: 07/12/23 11:40 History of Present Illness: HPI Narrative: 28-year-old female presents emergency de partment stating that she had a seizure this morning that lasted approximately 4 minutes according to bystanders at her work. She states she does have a history of seizures and has taken Keppra in the past but recently approximately 3 weeks ago changed to Depakote. She states she was rushing to go to work this morning and did miss a dose of her Depakote. She states she is scheduled to see Dr. Guerrero neurology for her seizures although she is not been able to see a neurologist in over 6 years. Seizure History: Yes Review of Systems 2 General: Reports: 10 or more systems reviewed and unremarkable except in HPI and below Skin/Breast: Reports: erythema Neuro: Reports: seizure-like activity Physical Exam 2 Narrative: EXAM NARRATIVE: Constitutional: the patient appears well nourished and with normal development. Vital signs reviewed as documented. GCS 15, HENMT: Normocephalic, superficial abrasion to the left frontal forehead.. External ears normal appearance without drainage. Nose without drainage, normal appearance. Mucus membranes moist. Neck is supple, No jugular venous distension, trachea is midline, no appreciable carotid bruits. No lymphadenopathy. No meningeal signs. Flexion, extension and lateral rotation is without pain. Eyes: Pupils are equal, round, reactive to light and accommodation. No scleral icterus. Extra-ocular movement are intact. Thorax is symmetrical and with equal rise and fall with respirations. Resp: Lungs are clear to auscultation. No wheezes, rales, crackles or ronchi at present. Cardio: Regular rate and rhythm. Positive S1, S2. No appreciable murmurs, rubs or gallops. GI: Abdominal exam reveals normal bowel sounds to all quadrants. No organomegaly. No obvious palpable masses noted. No hepatomegally appreciated. Soft, non-tender to palpation. Extremity: Extremities are non-edematous and both femoral and pedal pulses are 2+ and equal bilaterally. Moves all extremities well, sensation in all extremities. Neuro: Alert and oriented x4, person, place, time and situation. Cranial nerves II through XII are grossly intact, there is no focal neurological deficits that I can appreciate at present. Motor strength in the upper and lower extremities are equal and bilateral 5/5. No postictal signs at present. Psych: Cooperative, calm, normal thought process, appropriate judgment. Skin: No lesions, rashes. No gross abnormalities noted. Back: Symmetrical, no obvious deformity, No CVA tenderness Course 2 Vital Signs: Vital signs: Vital Signs Temperature 98.4 F 07/12/23 11:42 Pulse Rate 78 07/12/23 13:08 Respiratory Rate 16 07/12/23 13:08 Blood Pressure 115/93 07/12/23 13:15 Pulse Oximetry 94 07/12/23 13:15 Oxygen Delivery Me thod Room Air 07/12/23 13:08 MDM - Seizure MDM Narrative Medical decision making narrative: 28-year-old female with a previous history of seizure activity currently awaiting to see neurology on an outpatient basis. States that she was taking Keppra but it started making her very angry and approximately 3 weeks ago was changed to Depakote and she missed a 250 mg dose this morning had witnessed seizure activity and is back to her baseline at present. I will provide her laboratory evaluation and obtain a Depakote/valproic acid level as well as provide her p.o. Depakote while in the emergency department. I will have her follow-up by calling the neurologist office to see if her appointment for the of this month can be moved sooner. Medical Records Attestation: I reviewed the patient's medical records. Lab Data Attestation: I reviewed the patient's lab results. 07/12/23 11:30 07/12/23 11:30 Labs: Laboratory Results WBC 10.10 10^3/uL (3.29-11.43) 07/12/23 11:30 RBC 4.65 10^6/uL (3.85-5.65) 07/12/23 11:30 Hgb 14.50 g/dL (11.27-16.99) 07/12/23 11:30 Hct 45.1 % (36-47) 07/12/23 11:30 MCV 97.0 fl (85-98) 07/12/23 11:30 MCH 31.2 pg (27-33) 07/12/23 11:30 MCHC 32.2 g/dL (30-55) 07/12/23 11:30 RDW 14.1 % (12.1-15.1) 07/12/23 11:30 Plt Count 412 10^3/cmm (157-399) H 07/12/23 11:30 MPV 9.4 fL (7.4-10.4) 07/12/23 11:30 Neut % (Auto) 47.0 % 07/12/23 11:30 Lymph % (Auto) 39.2 % 07/12/23 11:30 Rankin % (Auto) 6.3 % 07/12/23 11:30 Eos % (Auto) 6.0 % 07/12/23 11:30 Baso % (Auto) 1.2 % 07/12/23 11:30 Neut # (Auto) 4.74 10^3/uL (1.8-7.7) 07/12/23 11:30 Lymph # (Auto) 4.0 10^3/uL (0.8-4.8) 07/12/23 11:30 Rankin # (Auto) 0.6 10^3/uL (0.2-0.9) 07/12/23 11:30 Eos # (Auto) 0.6 10^3/uL (0.0-0.8) 07/12/23 11:30 Baso # (Auto) 0.1 10^3/uL (0.0-0.1) 07/12/23 11:30 Nucleated RBC % (auto) 0 % 07/12/23 11:30 Nucleated RBCs # 0.0 /100WBC 07/12/23 11:30 Sodium 142 mmol/L (136-145) 07/12/23 11:30 Potassium 3.4 mmol/L (3.5-5.1) L 07/12/23 11:30 Chloride 101 mmol/L (98-107) 07/12/23 11:30 Carbon Dioxide 18 mmol/L (22-29) L 07/12/23 11:30 Anion Gap 26.4 (5-19) H 07/12/23 11:30 BUN 10 mg/dL (6-20) 07/12/23 11:30 Creatinine 0.8 mg/dL (0.5-0.9) 07/12/23 11:30 GFR Calculation 86.0 mL/min (90-130) L 07/12/23 11:30 Glucose 126 mg/dL (65-115) H 07/12/23 11:30 Calculated Osmolality 295 mOsm/kg (285-295) 07/12/23 11:30 Calcium 9.5 mg/dL (8.5-10.5) 07/12/23 11:30 Total Bilirubin 0.5 mg/dL (0.15-1.2) 07/12/23 11:30 AST 14 U/L (0-32) 07/12/23 11:30 ALT 11 U/L (0-33) 07/12/23 11:30 Alkaline Phosphatase 58 U/L (35-105) 07/12/23 11:30 Total Protein 8.1 g/dL (6.6-8.7) 07/12/23 11:30 Albumin 5.0 g/dL (3.5-5.2) 07/12/23 11:30 Globulin 3.1 g/dL (1.3-4.6) 07/12/23 11:30 Prolactin 46.15 ng/mL (4.8-23.3) H 07/12/23 11:30 HCG, Qual Negative (Negative) 07/12/23 12:16 Urine Color Yellow (Yellow) 07/12/23 12:16 Urine Appearance Sl hazy (CLEAR) A 07/12/23 12:16 Urine pH 6 (5-7) 07/12/23 12:16 Ur Specific Terral 1.025 (1.005-1.030) 07/12/23 12:16 Urine Protein 1+ (Negative) H 07/12/23 12:16 Urine Glucose (UA) Norm (Normal) 07/12/23 12:16 Urine Ketones Negative (Negative) 07/12/23 12:16 Urine Blood 2+ (Negative) H 07/12/23 12:16 Urine Nitrate Negative (Negative) 07/12/23 12:16 Urine Bilirubin Neg (Negative) 07/12/23 12:16 Urine Urobilinogen Norm mg/dL (Negative) 07/12/23 12:16 Ur Leukocyte Esterase Negative (Negative) 07/12/23 12:16 Urine RBC 0-4 /hpf (0-2) H 07/12/23 12:16 Urine WBC None /hpf (0-5) 07/12/23 12:16 Ur Squamous Epith Cells 25-40 /hpf (0-5) H 07/12/23 12:16 Amorphous Sediment Not Reportable 07/12/23 12:16 Urine Bacteria 2+ /hpf (NONE) H 07/12/23 12:16 Valproic Acid 2.8 ug/mL (50-100) L 07/12/23 11:50 No radiology studies performed this visit Discharge Plan Discharge Patient Disposition: Home Clinical Impression: Seizure Condition: Stable Prescriptions: No Action divalproex [Depakote] 250 mg tablet,delayed release (DR/EC) 250 mg PO BID Qty: 60 0RF Discharge Orders: Discharge ED (Routine); Ordered 07/12/23 Ordered By: Donny Garcia Referrals: Gordo Guerrero MD [Physician] - Discharge Diet: Usual diet Discharge Activity: Resume usual activity Patient Instructions: Opioid Safety, Pain Management Activity Restrictions/Additional Instructions: Activity Restrictions/Additional Instructions: Thank you for choosing [facility] for your healthcare needs today. Please realize that you were seen in the Emergency Department and that we are providing you with an emergency medical screening exam and this may not be a complete and all inclusive of all the testing and or medical work-up that you may need to determine your ailment or severity of your illness. It is very important that you follow-up as instructed with your Primary care provider or Specialist for additional evaluation and to discuss your medical treatment plan. You may return to the Emergency Department should you have concerns or if your condition changes or worsens in any way. Coding Level of Care Code ED Electric Motor Controls Assembler for Cierra Monge
[2023-07-12 12:13] LABS: Basophils # 0.1 10^3/uL (0.0-0.1); Basophils % 1.2 %; Eosinophils # 0.6 10^3/uL (0.0-0.8); Hematocrit 45.1 % (36-47); Lymphocytes % 39.2 %; Mean Corpuscular HGB Conc 32.2 g/dL (30-55); Mean Corpuscular Hemoglobin 31.2 pg (27-33); Mean Platelet Volume 9.4 fL (7.4-10.4); Monocytes # 0.6 10^3/uL (0.2-0.9); Monocytes % 6.3 %; Neutrophils # 4.74 10^3/uL (1.8-7.7); Nucleated Red Blood Cells % 0 %; Platelet Count 412 10^3/cmm (157-399); Red Blood Count 4.65 10^6/uL (3.85-5.65); Red Cell Distribution Width 14.1 % (12.1-15.1)
[2023-07-12 12:46] LABS: Alanine Aminotransferase 11 U/L (0-33); Alkaline Phosphatase 58 U/L (35-105); Anion Gap 26.4 (5-19); Aspartate Amino Transferase 14 U/L (0-32); Blood Urea Nitrogen 10 mg/dL (6-20); Calcium 9.5 mg/dL (8.5-10.5); Carbon Dioxide 18 mmol/L (22-29); Chloride 101 mmol/L (98-107); Globulin 3.1 g/dL (1.3-4.6); Glucose 126 mg/dL (65-115); Osmolality Calculated 295 mOsm/kg (285-295); Potassium 3.4 mmol/L (3.5-5.1); Prolactin 46.15 ng/mL (4.8-23.3); Sodium 142 mmol/L (136-145); Total Bilirubin 0.5 mg/dL (0.15-1.2); Total Protein 8.1 g/dL (6.6-8.7)
[2023-07-12 12:48] LABS: HCG Qualitative Urine. Negative (Negative)
[2023-07-12 13:04] LABS: Protein Urine 1+ (Negative); Specific Gravity, Urine 1.025 (1.005-1.030); Urine Appearance SL Hazy (CLEAR); Urine Color Yellow (Yellow); pH Urine 6 (5-7)
[2023-07-12 13:05] LABS: Bilirubin Urine Neg (Negative); Blood Urine 2+ (Negative); Glucose Urine UA Norm (Normal); Ketones Urine Negative (Negative); Leukocyte Esterase Urine Negative (Negative); Nitrate Urine Negative (Negative); Urobilinogen Urine Norm (Negative)
[2023-07-12 13:05] LABS: Valproic Acid Level 2.8 ug/mL (50-100)
[2023-07-12 13:06] LABS: Add Urine Culture? No; Bacteria Urine 2+ /hpf; RBC Urine 0-4 /hpf (0-2); Squamous Epithelial Cell Urine 25-40 /hpf (0-5)
[2023-07-12] MEDS: divalproex ER 250 mg Tablet (24H) PO (13:07)
[2023-07-12 13:08] VITALS: BP 121/79; PULSE 78; RESP 16; O2SAT 93
[2023-07-12 13:15] VITALS: BP 115/93; O2SAT 94
== END 2023-07-12 13:16 | disposition home or self-care (01) ==
PROVIDERS: Emergency Provider Internal Medicine; PCP Family Medicine
DX: R56.9 Unspecified convulsions (principal)
CPT/HCPCS: 80053; 80164; 81001; 81025; 84146; 85025; 99283

== ENCOUNTER 2025-02-05 20:45 | Emergency (ER) | payer SELFPAY ==
[2025-02-05 20:57] VITALS: BP 132/87; PULSE 77; RESP 18; TEMP 36.7; O2SAT 99; BMI 24.0
--- NOTE | 2025-02-05 21:02 | CTR_ITS ---
PROCEDURE INFORMATION: Exam: CT Head Without Contrast Exam date and time: 02/05/2025 9:09 PM Age: 29 years old Clinical indication: Injury or trauma; Fall; Blunt trauma (contusions or hematomas); EMS arrival for seizure with headstrike. TECHNIQUE: Imaging protocol: Computed tomography of the head without contrast. Radiation optimization: All CT scans at this facility use at least one of these dose optimization techniques: automated exposure control; mA and/or kV adjustment per patient size (includes targeted exams where dose is matched to clinical indication); or iterative reconstruction. COMPARISON: CT neck w con* [id number] 01/22/2022 7:24 PM RADIATION DOSE METRICS: Total DLP (mGy-cm): 1063.19 FINDINGS: Brain: Small lacunar focus in the right basal ganglia, nonspecific although commonly chronic. Cerebral ventricles: No ventriculomegaly. Paranasal sinuses: Visualized sinuses are unremarkable. No fluid levels. Mastoid air cells: Visualized mastoid air cells are well aerated. Bones: Unremarkable. No acute fracture. Soft tissues: Unremarkable. CT/CT head wo con* [id number] IMPRESSION: No definite acute intracranial abnormality.
--- NOTE | 2025-02-05 21:03 | W.ED.FALL ---
HPI - Fall General: Chief Complaint: Fall Stated Complaint: seizure Time Seen by Provider: 02/05/25 20:47 History of Present Illness: Patient comes in by EMS after having a seizure at the store. States that she fell and hit the back of her head. Patient has a history of seizures. States she cannot afford her Depakote and has not been on it for about a month. She is awake and alert at this time. No obvious trauma to the posterior scalp. Will check labs, CT head without IV contrast, give her a dose of her Depakote, and reassess. Related Data Previous Rx's ?Medication ?Instructions ?Recorded divalproex 250 mg tablet,delayed 250 mg PO BID #60 tabs 05/24/23 release (Depakote) Allergies Allergy/AdvReac Type Severity Reaction Status Date / Time levetiracetam (From [facility]) Allergy angry Verified 07/12/23 11:46 Review of Systems Neuro: Reports: other (Seizure) Physical Exam Const: COMMON NORMALS: no acute distress, patient oriented x3, healthy appearing and alert HENMT: COMMON NORMALS: normocephalic HEAD & SCALP: normocephalic Eye: COMMON NORMALS: Equal, round and reactive pupils present and EOMs intact bilaterally PUPIL: Yes Equal, round and reactive pupils present Neck/C-Spine: COMMON NORMALS: full ROM and supple Resp: COMMON NORMALS: normal respiratory effort, No retractions and No use of accessory muscles Cardio: COMMON NORMALS: regular rate and regular rhythm RATE: regular rate RHYTHM: regular rhythm Extremity: COMMON NORMALS: normal to inspection and full ROM Neuro: COMMON NORMALS: patient oriented x3 SENSORIUM/ORIENTATION: Yes alert Skin: COMMON NORMALS: no rashes or lesions noted and no wounds GENERAL SKIN EXAM: no rashes or lesions noted Course Vital Signs: Vital signs: Vital Signs Temperature 98.1 F 02/05/25 20:57 Pulse Rate 67 02/05/25 21:48 Respiratory Rate 18 02/05/25 20:57 Blood Pressure 120/85 02/05/25 21:48 Pulse Oximetry 99 02/05/25 21:48 Oxygen Delivery Me thod Room Air 02/05/25 21:48 MDM - Fall Medical Decision Making On reassessment I talked with the patient about the test results. Her CT is unremarkable. Her blood work is also unremarkable. We talked about starting her Depakote will discharge at this time with precautions to return for worsening or changing symptoms. Lab Data 02/05/25 21:28 02/05/25 21: Radiology Impressions Head CT 02/05/25 21:02 IMPRESSION: No definite acute intracranial abnormality. Laboratory Results WBC 8.87 10^3/uL (3.29-11.43) 02/05/25 21: RBC 4.27 10^6/uL (3.85-5.65) 02/05/25 21: Hgb 13.50 g/dL (11.27-16.99) 02/05/25 21: Hct 40.7 % (36-47) 02/05/25 21: MCV 95.3 fl (85-98) 02/05/25 21: MCH 31.6 pg (27-33) 02/05/25 21: MCHC 33.2 g/dL (30-55) 02/05/25: RDW 12.5 % (12.1-15.1) 02/05/25 21: Plt Count 365 10^3/cmm (157-399) 02/05/25 21: MPV 8.2 fL (7.4-10.4) 02/05/25 21: Neut % (Auto) 66.2 % 02/05/25 21: Lymph % (Auto) 23.6 % 02/05/25: Douglas % (Auto) 6.8 % 02/05/25: Eos % (Auto) 2.5 % 02/05/25: Baso % (Auto) 0.7 % 02/05/25: Neut # (Auto) 5.88 10^3/uL (1.8-7.7) 02/05/25: Lymph # (Auto) 2.1 10^3/uL (0.8-4.8) 02/05/25: Douglas # (Auto) 0.6 10^3/uL (0.2-0.9) 02/05/25 21: Eos # (Auto) 0.2 10^3/uL (0.0-0.8) 02/05/25: Baso # (Auto) 0.1 10^3/uL (0.0-0.1) 02/05/25 21:28 Nucleated RBC % (auto) 0 % 02/05/25 21:28 Nucleated RBCs # 0.0 /100WBC 02/05/25 21:28 Sodium 138 mmol/L (136-145) 02/05/25 21:28 Potassium 3.4 mmol/L (3.5-5.1) L 02/05/25 21:28 Chloride 101 mmol/L (98-107) 02/05/25 21:28 Carbon Dioxide 24 mmol/L (22-29) 02/05/25 21:28 Anion Gap 16.4 (5-19) 02/05/25 21:28 BUN 9 mg/dL (6-20) 02/05/25 21:28 Creatinine 0.7 mg/dL (0.5-0.9) 02/05/25 21:28 GFR Calculation 99.6 mL/min (90-130) 02/05/25 21:28 Glucose 104 mg/dL (65-115) 02/05/25 21:28 Calculated Osmolality 285 mOsm/kg (285-295) 02/05/25 21:28 Calcium 9.2 mg/dL (8.5-10.5) 02/05/25 21:28 All radiology interpretation(s) finalized by discharge Discharge Plan Discharge Patient Disposition: Home Clinical Impression: Seizure Condition: Stable Prescriptions: No Action divalproex [Depakote] 250 mg tablet,delayed release (DR/EC) 250 mg PO BID Qty: 60 0RF Discharge Orders: Discharge ED (Routine); Ordered 02/05/25 Ordered By: Marck Clark Referrals: Caleb Dai MD [Primary Care Provider, Family Practice] Patient Instructions: Epilepsy (ED), Patient Portal & Kel Instructions Print Language: [place] Coding Level of Care Code ED Dental Equipment Mechanic for Cierra Monge
[2025-02-05 21:38] LABS: Hematocrit 40.7 % (36-47); Hemoglobin 13.50 g/dL (11.27-16.99); Mean Corpuscular HGB Conc 33.2 g/dL (30-55); Mean Corpuscular Hemoglobin 31.6 pg (27-33); Mean Corpuscular Volume 95.3 fl (85-98); Nucleated Red Blood Cells % 0 %; Platelet Count 365 10^3/cmm (157-399); Red Blood Count 4.27 10^6/uL (3.85-5.65); White Blood Count 8.87 10^3/uL (3.29-11.43)
[2025-02-05 21:48] VITALS: BP 120/85; PULSE 67; O2SAT 99
[2025-02-05 21:52] LABS: Anion Gap 16.4 (5-19); Blood Urea Nitrogen 9 mg/dL (6-20); Calcium 9.2 mg/dL (8.5-10.5); Carbon Dioxide 24 mmol/L (22-29); Chloride 101 mmol/L (98-107); Creatinine Clr Calc Pharmacy 109.9734; Glucose 104 mg/dL (65-115); Osmolality Calculated 285 mOsm/kg (285-295); Potassium 3.4 mmol/L (3.5-5.1); Sodium 138 mmol/L (136-145)
[2025-02-05 22:49] VITALS: BP 134/86; PULSE 65; O2SAT 95
== END 2025-02-05 22:52 | disposition home or self-care (01) ==
PROVIDERS: Emergency Provider Emergency Medicine; PCP Family Medicine
DX: R56.9 Unspecified convulsions (principal)
CPT/HCPCS: 36415; 70450; 80048; 85025; 99284; J9999